=== PATIENT | male | born 1985 | race Two or more races ===

== ENCOUNTER 2023-11-09 13:37 | Emergency (ER) | payer BC, SELFPAY ==
[2023-11-09 13:41] VITALS: BP 152/86; PULSE 72; RESP 20; TEMP 36.1; O2SAT 98
--- NOTE | 2023-11-09 15:32 | ED.DENTAL ---
HPI - Dental/Oral General Chief complaint: Dental/Oral Stated complaint: tooth pain Time Seen by Provider: 11/09/23 13:49 History of Present Illness HPI Narrative: patient is a 38-year-old male presenting with Dental pain. States that he had his teeth cleaned earlier this week and he has been having nerve pain in 1 of his left upper molar since that time. States that feels very sensitive to hot and cold. He took Tylenol with minimal relief. He called his dentist who was unable to help so he came in for evaluation. No swelling, fevers, drainage. No further complaints. States that he thinks he is allergic to all anti-inflammatories as he had eye swelling when he took aspirin once. Related Data Allergies Allergy/AdvReac Type Severity Reaction Status Date / Time aspirin Allergy Swelling Verified 11/09/23 13:44 of the Eye anti inflammtories Allergy Swelling Uncoded 11/09/23 13:44 of the Eye Review of Systems Review of Systems: All systems reviewed & are unremarkable except as noted in HPI and below Exam Narrative: GENERAL: Well-appearing, well-nourished, and in no acute distress. HEAD: Normocephalic, atraumatic. EYES: PERRLA and EOMI. ENT: No obvious dental caries or broken teeth, no dental abscesses, no intraoral swelling NECK: Supple. CHEST: No respiratory distress. HEART: Regular rate and rhythm EXTREMITIES: Normal range of motion. SKIN: Warm, dry, no rash. NEURO: Alert and oriented x3. PSYCH: Normal mood and affect. Course Vital Signs Vital signs: Vital Signs Temperature 97.0 F L 11/09/23 13:41 Pulse Rate 72 11/09/23 13:41 Respiratory Rate 20 11/09/23 13:41 Blood Pressure 152/86 H 11/09/23 13:41 Pulse Oximetry 98 11/09/23 13:41 Oxygen Delivery Room Air 11/09/23 13:41 Temperature 97.0 F L 11/09/23 13:41 Pulse Rate 72 11/09/23 13:41 Respiratory Rate 20 11/09/23 13:41 Blood Pressure 152/86 H 11/09/23 13:41 Pulse Oximetry 98 11/09/23 13:41 Oxygen Delivery Room Air 11/09/23 13:41 MDM - Dental/Oral MDM Narrative Medical decision making narrative: patient is a 38-year-old male presenting with dental pain. Vitals stable. Exam is unremarkable. Offered of a dental block but patient declines. He was open to trying naproxen. Patient given a dose of naproxen and observed for about 45 minutes without any reaction. He would like to go home with a prescription for naproxen which I think is reasonable. Advised that he follow-up with his dentist as well as his PCP. Appropriate return precautions given. Discharged in stable condition. Differential Diagnosis Differential diagnosis: Likely dental caries, toothache, dental abscess and fracture of tooth Critical Care Time Critical Care Time Critical Care Time: No Discharge Plan Discharge Clinical Impression: Toothache Patient Disposition: Home, Self-Care Condition: Stable Instructions: Antibiotic Form, Toothache (ED) Additional Instructions: You may take the naproxen twice a day for pain control. Please follow-up closely with your dentist and primary care provider. Prescriptions: New naproxen 500 mg tablet 500 mg PO BID PRN (Reason: pain) Qty: 30 0RF Follow-up/Referrals: Ernesto,Robert Townsend MD [Primary Care Provider] -
[2023-11-09] MEDS: NAPROXEN 500 MG TABLET PO (15:50)
== END 2023-11-09 16:55 | disposition home or self-care (01) ==
PROVIDERS: Emergency Provider Emergency Medicine; PCP Family Medicine Sports Medicine
DX: K08.89 Other specified disorders of teeth and supporting structures (principal)
CPT/HCPCS: 99283; A9270